=== PATIENT | male | born 1965 | race Caucasian/White ===

== ENCOUNTER 2021-10-07 21:26 | Emergency (ER) | payer BC ==
[2021-10-07] MEDS ORDERED: Morphine 2 MG/ML SYRINGE IVPUSH ONE (21:40)
[2021-10-07] MEDS ORDERED: Sodium Chloride 0.9% 1,000 ML IV SCH (21:45)
[2021-10-07 22:01] LABS: TROPONIN I HIGH SENSITIVITY 5.3 pg/ml (<=60.4)
[2021-10-07] MEDS ORDERED: Clopidogrel 75 MG Tab PO ONE (22:04)
[2021-10-07] MEDS ORDERED: ALTEPLASE IV ONE ×2 (22:24→22:25)
[2021-10-07] MEDS ORDERED: Heparin Sodium 5,000 Units/ML Vial IVPUSH ONE (22:30)
[2021-10-07] MEDS ORDERED: Heparin Sodium/D5W 25,000 UNITS/500 ML BAG IV SCH (22:30)
[2021-10-08] MEDS ORDERED: fentaNYL 100 MCG/2 ML SDV IVPUSH ONE (00:12)
[2021-10-08] MEDS ORDERED: Morphine 2 MG/ML SYRINGE IVPUSH ONE (00:13)
== END 2021-10-07 23:24 ==
LOC: LB.ED 21:26
DX: I21.29 ST elevation (STEMI) myocardial infarction involving other sites (principal); I24.9 Acute ischemic heart disease, unspecified; Z20.822 Contact with and (suspected) exposure to COVID-19
CPT/HCPCS: 36415; 37195; 71045; 80048; 84484; 85025; 85379; 93005; 96365; 96375; 99285-25; A9270-GY; J1644; J2270; J2997; J3010; J7030; U0002